=== PATIENT | male | born 1970 | race Hispanic/Latino ===

== ENCOUNTER 2017-11-08 14:49 | Emergency (ER) | payer OTHER ==
[2017-11-08] MEDS ORDERED: Dextrose 50% SYRINGE Inj (50 ml) ONE (14:57)
--- NOTE | 2017-11-08 15:05 | ED PDOC ---
Syncope/Near Syncope/Dizziness Time Seen by Provider: 11/08/17 14:55 Chief Complaint (Nursing): Dizziness/Lightheaded History Per: EMS, Other Onset/Duration Of Symptoms: Hrs (1) Current Symptoms Are (Timing): Better Activity At Onset Of Symptoms: Sitting Associated Symptoms Preceding Syncopal Episode: No Predromal Symptoms (Sudden Onset) Seizure Or Post-ictal Symptoms: None Fall Associated With With Symptoms: No Injury As Result Of Fall Severity: Mild Additional Complaint(s): Brought by EMS after coworker noted pt leaning off chair. Pt has h/o IDDM, took insulin this AM, ate a power bar. Accucheck at scene low. Pt responded to 1 amp D50W by becoming awake and alert and oriented. Staes no injury. Past Medical History Vital Signs: Last Vital Signs Temp 97.8 F 11/08/17 14:52 Pulse 92 H 11/08/17 14:52 Resp 20 11/08/17 14:52 BP Pulse Ox 98 11/08/17 14:52 - Medical History PMH: Diabetes - Family History Family History: States: Unknown Family Hx - Allergies Allergies/Adverse Reactions: Allergies Allergy/AdvReac Type Severity Reaction Status Date / Time No Known Allergies Allergy Verified 11/08/17 14:54 Review of Systems ROS Statement: Except As Marked, All Systems Reviewed And Found Negative Physical Exam - Reviewed Nursing Documentation Reviewed: Yes Vital Signs Reviewed: Yes - Physical Exam Appears: Positive for: Non-toxic, No Acute Distress Head Exam: Positive for: ATRAUMATIC, NORMAL INSPECTION, NORMOCEPHALIC Skin: Positive for: Normal Color, Warm, DRY Eye Exam: Positive for: EOMI, Normal appearance, PERRL ENT: Positive for: Normal ENT Inspection Neck: Positive for: Normal, Painless ROM Cardiovascular/Chest: Positive for: Regular Rate, Rhythm Respiratory: Positive for: CNT, Normal Breath Sounds Gastrointestinal/Abdominal: Positive for: Normal Exam, Soft Back: Positive for: Normal Inspection Extremity: Positive for: Normal ROM Neurologic/Psych: Positive for: Alert, Oriented. Negative for: Motor/Sensory Deficits - Laboratory Results Result Diagrams: 11/08/17 15:30 11/08/17 15:30 - ECG O2 Sat by Pulse Oximetry: 98 - Progress Re-evaluation Time: 16:22 Condition: Improved (Awake alert oriented x 3 ate pudding and OJ x 2.) Disposition - Clinical Impression Clinical Impression: Hypoglycemia - Patient ED Disposition Is Patient to be Admitted: No Counseled Patient/Family Regarding: Studies Performed, Diagnosis, Need For Followup - Disposition Referrals: [facility] [place] [Outside] Disposition: Routine/Home Disposition Time: 16:23 Condition: FAIR Instructions: Low Blood Sugar in People With Diabetes Forms: [facility] (Amharic)
[2017-11-08 15:43] LABS: BASO % 0.3 % (0.0-2.0); EOS % 0.2 % (0.0-4.0); HEMOGLOBIN 15.1 g/dL (12.0-18.0); LYMPH # 2.1 K/uL (1.0-4.3); LYMPH % 13.1 % (20.0-40.0); MEAN CELL VOLUME 89.7 fl (80.0-94.0); MEAN CORPUSCULAR HEMOGLOBIN 30.2 pg (27.0-31.0); MEAN CORPUSCULAR HGB CONC 33.7 g/dL (33.0-37.0); MEAN PLATELET VOLUME 7.9 fl (7.2-11.7); MONO # 1.2 K/uL (0.0-0.8); MONO % 7.5 % (0.0-10.0); NEUT # 12.9 K/uL (1.8-7.0); NEUT % 78.9 % (50.0-75.0); NRBC % 0.1 % (0.0-0.0); RED CELL DISTRIBUTION WIDTH 13.5 % (11.5-14.5); WHITE BLOOD COUNT 16.4 K/uL (4.8-10.8)
[2017-11-08] MEDS ORDERED: Dextrose 50% SYRINGE Inj (50 ml) IVP ONE (15:53)
[2017-11-08 16:01] LABS: ALB/GLOB RATIO 1.1 (1.0-2.1); ALBUMIN 4.4 g/dL (3.5-5.0); ALT/SGPT 47 U/L (21-72); AST/SGOT 42 U/L (17-59); BLOOD UREA NITROGEN 14 mg/dl (9-20); CALCIUM 9.2 mg/dL (8.4-10.2); GFR AFRICAN-AMERICAN > 60; GFR NON-AFRICAN AMERICAN > 60
[2017-11-08 16:32] VITALS: BP 132/71; PULSE 79; RESP 15; TEMP 98.8; O2SAT 99
--- NOTE | 2017-11-09 07:34 | CARD ---
APPROVED REPORT EKG Measurement Heart [id number] <Conclusion> Normal sinus rhythm Normal ECG
== END 2017-11-08 16:32 | disposition home or self-care (01) ==
LOC: H.ER 14:49 → EDBD 14:49 → H.ER 16:32
DX: E11.9 Type 2 diabetes mellitus without complications (principal)